=== PATIENT | female | born 1965 ===

== ENCOUNTER → 2018-05-28 21:14 | Outpatient (REF) | payer OTHER, SELFPAY ==
[2018-05-28 22:36] LABS: Free T4, Direct Thyroxine 1.19 ng/dL (0.78-2.19); Triiodothryronine T3 Uptake 30.2 % (23.5-40.5)
[2018-05-28 22:50] LABS: Thyroid Stimulating Hormone 1.69 uIU/mL (0.47-4.68)
[2018-05-30 15:17] LABS: Anti Thyroglobulin Antibody < 1 IU/mL (< 2); Thyroid Peroxidase Antibodies < 1 IU/mL (< 9)
[2018-05-31 10:05] LABS: Triiodothyronine T3 Total 100 ng/dL (76-181)
== END ==
LOC: LAB 21:14
PROVIDERS: Visit Provider Acupuncturist
DX: E03.9 Hypothyroidism, unspecified (principal)
CPT/HCPCS: 36415; 84439; 84443; 84479; 84480; 84481; 86376; 86800